=== PATIENT | female | born 1985 ===

== ENCOUNTER 2022-01-07 07:14 | Day surgery (SDC) | payer MEDICAID ==
[~2022-01-07] VITALS: Ht 167.6 cm; Wt 65.8 kg
[2022-01-07] MEDS ORDERED: MEPERIDINE 100 MG INJ. 100 MG/ML VIAL ONE (07:39)
[2022-01-07] MEDS ORDERED: MIDAZOLAM HCL 5 MG/5 ML VIAL ONE ×2 (07:40→09:08)
[2022-01-07 07:46] LABS: HCG,QUAL RESULT NEGATIVE (NEGATIVE)
[2022-01-07] MEDS ORDERED: DIPHENHYDRAMINE INJ 50 MG/ML VIAL ONE (08:59)
[2022-01-07] MEDS ORDERED: ONDANSETRON HCL 4 MG/2 ML VIAL ONE (09:12)
[2022-01-07 11:20] VITALS: BP_SYST 155
== END 2022-01-07 10:10 | disposition home or self-care (01) ==
LOC: SDS 07:14 → SMU 07:19 → EDSEX 10:00 → SDS 10:10
PROVIDERS: ATTEND Internal Medicine
DX: K52.9 Noninfective gastroenteritis and colitis, unspecified (principal); R19.4 Change in bowel habit; K64.8 Other hemorrhoids; Z79.899 Other long term (current) drug therapy; Z20.822 Contact with and (suspected) exposure to COVID-19
CPT/HCPCS: 36415; 45380; 84703; 88305; J1200; J2175; J2250; J2405